=== PATIENT | female | born 1975 | race Caucasian/White ===

== ENCOUNTER 2017-02-04 12:49 | Emergency (ER) | payer MEDICAID ==
[2017-02-04 12:58] VITALS: RESP 16; O2SAT 98
[2017-02-04] MEDS ORDERED: ONDANSETRON DISINTEGRATING 4 MG TAB ONE (13:04)
[2017-02-04] MEDS ORDERED: NS 1,000 ML IV ONE ×2 (13:55→14:45)
[2017-02-04] MEDS ORDERED: METOCLOPRAMIDE 10 MG/2 ML VIAL IVP ONE (13:55)
[2017-02-04] MEDS ORDERED: DEXAMETHASONE 10 MG/ML VIAL IVP ONE (13:55)
[2017-02-04] MEDS ORDERED: KETOROLAC 30 MG/1 ML SDV IVP ONE (13:55)
[2017-02-04 14:55] LABS: % IMMATURE GRANULYOCYTES 0.4 % (0.0-1.1); ABSOLUTE IMMATURE GRANULOCYTES 0.03 10^3/uL (0.00-0.10); ADD DIFF? NO; ADD MORPH? NO; ADD SCAN? NO; ATYPICAL LYMPHOCYTE FLAG 0 (0-99); FRAGMENT RBC FLAG 0 (0-99); HEMATOCRIT 38.6 % (38.0-47.0); LEFT SHIFT FLG 0 (0-99); LIPEMIA HEMOLYSIS FLAG 90 (0-99); MEAN CELL HEMOGLOBIN CONCENTR. 36.3 g/dL (32.4-36.7); MEAN PLATELET VOLUME 9.4 fL (8.7-11.7); PLATELET CLUMPS FLAG 0 (0-99); PLATELET COUNT 329 10^3/uL (150-400); RED BLOOD CELL COUNT 4.24 10^6/uL (4.18-5.33); RED CELL DISTRIBUTION WIDTH 12.2 % (11.5-15.2)
[2017-02-04 15:02] LABS: ALANINE AMINOTRANSFERASE 26 IU/L (9-52); ALKALINE PHOSPHATASE 76 IU/L (38-126); ANION GAP 14 mEq/L (8-16); ASPARTATE AMINOTRANSFERASE 23 IU/L (14-46); BILIRUBIN,TOTAL 0.6 mg/dL (0.1-1.4); BILIRUBIN-CONJUGATED 0.4 mg/dL (0.0-0.5); BILIRUBIN-UNCONJUGATED 0.2 mg/dL (0.0-1.1); CALCIUM 9.5 mg/dL (8.5-10.4); CARBON DIOXIDE 19 mEq/l (22-31); CHLORIDE 104 mEq/L (97-110); CREATININE 0.9 mg/dL (0.6-1.0); GLOMERULAR FILTRATION RATE > 60; GLUCOSE 115 mg/dL (70-100); POTASSIUM 3.6 mEq/L (3.5-5.2); SODIUM 137 mEq/L (134-144); TOTAL PROTEIN 6.8 g/dL (6.3-8.2)
--- NOTE | 2017-02-04 15:35 | UCPHY ---
H & P Patient Type: Established Chief Complaint Nursing Narrative: MIGRAINE, VOMITING, TOOK 3000MG OF VALTREX IN 8 HOURS CONCERNED IT MAY BE TOO MUCH Time Seen by Provider: 02/04/17 13:54 HPI/ROS: CHIEF COMPLAINT: Migraine HISTORY OF PRESENT ILLNESS: This is a 41-year-old female presents reporting that she thinks she has a migraine headache. Patient describes history of migraines which typically present and focal pain behind her left eye, light sensitivity, nausea, vomiting, and often a feeling of being off balance. Yesterday the patient touch was getting a cold sore and took 1000 mg of Valtrex as she has been directed to do by her physician. She began to develop a headache. In the middle night she took an additional 1000 mg of Valtrex and again took 1000 mg of Valtrex at 9:30 a.m. in the morning. Patient reports a diffuse headache as well as nausea, vomiting, and feeling off balance. She does not have a focal headache. She mostly complains of feeling poorly all She denies any recent fevers or chills, chest pain, shortness breath, palpitations, diarrhea, urinary complaints, or lightheadedness. She denies vertiginous symptoms but states that when she gets migraine she often feels off balance and according to her sister she was off balance and nearly ataxic on arrival to the emergency department. Patient states she has been seen 1 time in the emergency department previously for similar severe symptoms such as today's. No head trauma recently. No fever. REVIEW OF SYSTEMS: Aside from elements discussed in the HPI, a comprehensive 10-point review of systems was reviewed and is negative. PAST MEDICAL HISTORY: Migraines, seizure disorder. SOCIAL HISTORY: Here with her sister. Nonsmoker. VITAL SIGNS Reviewed by me. GENERAL: Well-developed, well-nourished, resting in a dark room. HEENT: Atraumatic. Eyes: PERRL, EOMI, no nystagmus. No icterus. No injection. Mouth: moist mucous membranes. No erythema or lesions. Neck: No meningitis. Nontender to palpation. No adenopathy. Negative Kernig's. Negative Brudzinski's. No meningismus. LUNGS: Clear to auscultation bilaterally, no wheezes, rhonchi or rales. CARDIAC: Regular rate and rhythm, no rubs, murmurs or gallops. ABDOMEN: Soft, nontender, nondistended, bowel sounds normal. BACK: No CVA tenderness. EXTREMITIES: No trauma. No edema. Range of motion is normal throughout. NEURO: Alert and oriented, cranial nerves II through XII are intact. Motor strength 5 over 5 in all major muscle groups. Sensation intact to light touch. [id number] is normal. SKIN: Warm and dry, no rash. PSYCHIATRIC: Normal mentation, no agitation. - Personal History LMP (Females 10-55): 1-7 Days Ago Current Tetanus Diphtheria and Acellular Pertussis (TDAP): Yes Tetanus Vaccine Date: < 10 YEARS - Medical/Surgical History Hx Asthma: Yes Hx Chronic Respiratory Disease: No Hx Diabetes: No Hx Cardiac Disease: No Hx Renal Disease: No Hx Cirrhosis: No Hx Alcoholism: No Hx HIV/AIDS: No Hx Splenectomy or Spleen Trauma: No Other PMH: seizures, migraines, hemochromatosis, adhd, appy - Family History Significant Family History: No pertinent family hx (no history of thromboemboli) - Social History Smoking Status: Never smoked Constitutional: Initial Vital Signs Heart Rate 62 02/04/17 12:52 Respiratory Rate 16 02/04/17 12:52 Blood Pressure 124/71 H 02/04/17 12:52 O2 Sat (%) 98 02/04/17 12:52 O2 Delivery Mode Room Air Allergies/Adverse Reactions: No Known Allergies Allergy (Unverified 02/04/17 12:58) Home Medications: Medication Instructions Recorded ALBUTEROL SULFATE 12/20/10 LAMICTAL ODT 12/20/10 Valtrex 12/20/10 Escitalopram Oxalate 05/05/16 Levothyroxine 05/05/16 Zonegran 05/05/16 Medical Decision Making ED Course/Re-evaluation: IV was established. Patient received Reglan, Benadryl, Decadron, Toradol for her headache. CBC and chemistries are normal with the exception of a CO2 of 19. Results: CT scan of the head was obtained. I viewed the images independently on the PACS system. I discussed the results of the study with the radiologist. Impression: No acute findings, no trauma. No mass. Please see the full radiology report. Patient reexamined on multiple occasions. Feeling somewhat improved with meds including dilaudid. Wants to go home. Still off balance but reports this is better than it has been with her migraines in the past. Nursing staff ambulated patient with minimal assistance. She and her sister are comfortable with being discharged. They feel it is typical of her migraine headaches as well as possible effects of additional valtrex. Differential Diagnosis: After history was obtained, and the physical exam performed, a differential for this patients symptom complex was considered including, but not limited to, subarachnoid hemorrhage, migraine headache, tension headache, electrolyte abnormalities, stroke, central venous clot, and infectious causes such as meningitis, sinusitis, encephalitis, and viral illness. - Data Points Laboratory Results: Laboratory Results 02/04/17 13:10 02/04/17 13:10 Medications Given: Discontinued Medications Dexamethasone (Decadron Injection) 10 mg IVP EDNOW ONE Stop: 02/04/17 13:56 Last Admin: 02/04/17 14:18 Dose: 10 mg Diphenhydramine HCl (Benadryl Injection) 25 mg IVP EDNOW ONE Stop: 02/04/17 13:56 Last Admin: 02/04/17 14:18 Dose: 25 mg Sodium Chloride (Ns) 1,000 mls @ 0 mls/hr IV ONCE ONE PRN Reason: Wide Open Stop: 02/04/17 13:56 Last Admin: 02/04/17 14:19 Dose: 1,000 mls Sodium Chloride (Ns) 1,000 mls @ 0 mls/hr IV ONCE ONE PRN Reason: Wide Open Stop: 02/04/17 14:46 Last Admin: 02/04/17 14:58 Dose: 1,000 mls Ketorolac Tromethamine (Toradol) 30 mg IVP EDNOW ONE Stop: 02/04/17 13:56 Last Admin: 02/04/17 14:18 Dose: 30 mg Metoclopramide HCl (Reglan Injection) 10 mg IVP EDNOW ONE Stop: 02/04/17 13:56 Last Admin: 02/04/17 14:19 Dose: 10 mg Departure - Departure Disposition: Home, Routine, Self-Care Clinical Impression: Migraine Qualifiers: Migraine type: unspecified Status migrainosus presence: without status migrainosus Intractability: not intractable Qualified Code(s): G43.909 - Migraine, unspecified, not intractable, without status migrainosus Headache Qualifiers: Headache type: unspecified Headache chronicity pattern: episodic headache Intractability: not intractable Qualified Code(s): R51 - Headache Condition: Good Instructions: Migraine Headache (ED) Additional Instructions: Please follow up with your neurologist regarding today's symptoms. Please follow up with your primary care physician as well. I encourage you to get plenty of rest, drink plenty of fluid, continue to use Phenergan as needed for nausea. Return to Urgent Care follow up with her primary care physician or seek care urgently if you develops severe worsening headache pain, worsening off balance sensation, or other concerns. Referrals: Sybil Mosley DO [Primary Care Provider] - As per Instructions - PQRS PQRS Measurement: Not applicable
[2017-02-04 15:55] VITALS: BP 114/60; PULSE 72; TEMP 97.5
== END 2017-02-04 16:05 | disposition home or self-care (01) ==
LOC: CED 12:49
DX: G43.909 Migraine, unspecified, not intractable, without status migrainosus (principal)
CPT/HCPCS: 70450-PO; 80048-PO; 80076-PO; 83690-PO; 84703-PO; 85025-PO; 87400-PO; 96361-PO; 96374-PO; 96375-PO; G0463-PO; J1200; J1885; J2765

== ENCOUNTER 2017-09-06 23:32 | Emergency (ER) | payer MEDICAID ==
[2017-09-06 23:48] VITALS: RESP 16
--- NOTE | 2017-09-07 00:02 | EDPHY ---
H & P Stated Complaint: L Calf pain and edema. Time Seen by Provider: 09/06/17 23:50 HPI/ROS: CHIEF COMPLAINT: left calf discomfort and medial leg discomfort with swelling HISTORY OF PRESENT ILLNESS: 42-year-old female who some 10 days ago was out on around, this is something quite common for her as she actively runs. The course of the run there is no particular 1 incident where she injured the leg or with a particular stride but in general the leg started to bother her. She localizes the area of discomfort at the beginning over the medial aspect just above the tibial malleolus. Over the next 10 days the discomfort has intensified, only stay brain mild at 3/10. However the area of discomfort has increased and expanded up to the midportion of the calf. Further she feels that there is some tension in the tissue as it is sore to the touch. Finally, she noted some pitting edema to the ankle area in the tissue just above the ankle prompted her to become concerned for something else as an alternative diagnosis, such as DVT. P no particular incident recalled. Q achiness R starting at the medial aspect of the lower leg just above the tibial malleolus ascending to the midportion of the gastroc S 2-3 T progressive over last 10 days Furthermore, of note is that she has had prior issues with medial gastrocs sensitivity with a running but has never been feeling like this nor has there been any associated swelling in the past. 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 Respiratory-there is no pleuritic chest pain, chest pain, cough, or shortness of breath CV: No chest pain or SOB. Integument - there is a donna to the area of the distal aspect of the distal 5th of the anterior tibial surface of a abrasion. This is not like a scratch. There is no surrounding erythema or edema or sensitivity. She shaves daily, though does not recall an injury per se. Ext - no edema to the other leg Neurological - no numbness, tingling, or paresthesias. Source: Patient Exam Limitations: No limitations - Personal History LMP (Females 10-55): 15-21 Days Ago Current Tetanus/Diphtheria Vaccine: Unsure Current Tetanus Diphtheria and Acellular Pertussis (TDAP): Unsure Tetanus Vaccine Date: < 10 YEARS - Medical/Surgical History Hx Asthma: Yes Hx Chronic Respiratory Disease: No Hx Diabetes: No Hx Cardiac Disease: No Hx Renal Disease: No Hx Cirrhosis: No Hx Alcoholism: No Hx HIV/AIDS: No Hx Splenectomy or Spleen Trauma: No Other PMH: seizures, migraines, hemochromatosis, ADHD, appy, hypothyroid, R knee arthroscope, Insomnia. No known hypercoagulable syndrome - Family History Significant Family History: No pertinent family hx (Mother did have a blood clot of some sort treated with stockings as well as heparin 4 years ago. At the same token there is no history of a family hypercoagulable syndrome) - Social History Smoking Status: Never smoked Alcohol Use: None Drug Use: None - Physical Exam Exam: General Appearance: Alert, no distress. Afebrile. HEENT: no air hunger, good color, no cyanosis, no pallor. Resp: no labored breathing CV: peripheral pulses intact and a little faint on the left vs right, but not any more than I expect with the mild swelling. Extremities: There is a mild degree of soft tissue swelling to the midportion of the left leg when compared to the right. There is also increased turgor within the leg, but I do not feel any palpable cords localized to the deep system. There is a small, 8 x 6 mm partial-thickness abrasion overlying the midportion of the distal 5th of the left leg with no surrounding erythema or edema. She cannot give an explanation for this injury. She does not think it to have been from shaving. There is 1+ pitting edema in the lower 5th of the leg and notable edema the surrounding the area of the Achilles tendon. Her Osorio test is negative. And there is no particular tenderness along the course of the Achilles per se at the insertion or along the length. There is tenderness along the muscle belly of the gastroc particularly medially as she is noted. No inguinal adenopathy. No red streaks. Homans is negative. Cap Refill intact. Musculoskeletal: There is no swelling to the knee joint. Clinton sign is negative. Full range of motion. Neurological: NV intact. Skin: See above WRT small abrasion. Warm and dry, no rashes. no lymphangitis. Psychiatric: Normal affect. Appropriately worried, not stressing out. Constitutional: Initial Vital Signs Temperature (C) 36.7 C 09/06/17 23:46 Heart Rate 75 09/06/17 23:46 Respiratory Rate 16 09/06/17 23:46 Blood Pressure 120/68 09/06/17 23:46 O2 Sat (%) 98 09/06/17 23:46 O2 Delivery Mode Room Air Allergies/Adverse Reactions: No Known Allergies Allergy (Verified 09/06/17 23:34) Home Medications: Medication Instructions Recorded ALBUTEROL SULFATE 12/20/10 LAMICTAL ODT 12/20/10 Valtrex 12/20/10 Escitalopram Oxalate 05/05/16 Levothyroxine 05/05/16 Zonegran 05/05/16 Ambien 09/06/17 Imitrex 09/06/17 Lorazepam 09/06/17 Phenergan 12.5mg tab 09/06/17 Trazodone HCl 09/06/17 Medical Decision Making ED Course/Re-evaluation: Her Wells score is as follows: : No Immobilize - casting/paresis: No Bedridden / Surgery in 4 weeks no Locally tender to deep system no Calf >3cm no Pitting edema of involved leg yes Swollen veins, non varicose, superficial no Active Cancer < 6 mo. No Other Dx more llikely (-2) = bakers, cellulitis, muscle damage - muscle strain likely, -2 Her score is-1, which is low probability thus I will perform a D-dimer. Ultimately D-dimer was weakly positive 570. Thus a duplex scan of the left lower leg was ordered. I reviewed the study, which is a whole leg study, with the on-call radiologist who read the film for me. He notes that there is no signs of DVT. However there is a medial fluid collection near the knee extending down toward the ankle. It is not completely compatible with a Valle cyst though of a consideration - however the patient's symptoms seemed to start from a medial, extreme lower leg process. I had a chance to discuss with patient these findings. We also discussed elevation leg of the neck is for 5 days to mitigate the swelling, no shaving as she has abrasion of the leg, and follow up with her PCP/orthopedist of choice. The abrasion does not appear to be infected. I think this is a low chance that this is cellulitic process and that the antibiotic would be much more problematic than helpful. Thereby would only institute antibiotics if symptoms become more definitive. Differential Diagnosis: The differential diagnosis includes but is not limited to: Fracture, Sprain, Strain, Dislocation, Nerve injury, DVT, Contusion Departure - Departure Disposition: Home, Routine, Self-Care Clinical Impression: Leg swelling Muscle strain of left lower extremity Qualifiers: Encounter type: initial encounter Qualified Code(s): S86.912A - Strain of unspecified muscle(s) and tendon(s) at lower leg level, left leg, initial encounter Abrasion hip/leg Qualifiers: Encounter type: initial encounter Laterality: left Qualified Code(s): S80.812A - Abrasion, left lower leg, initial encounter Condition: Good Instructions: Muscle Strain (ED) Additional Instructions: Apply Band-Aid to the abrasion 3 times daily after mild soap cleanse Elevate the leg as much as possible over the next 4-5 days Return or if you have swelling into the thigh, worsening symptoms, or any chest symptoms such as cough shortness of breath or pain with breathing No shaving until this leg condition settles down Referrals: Patient,NotPresent [Primary Care Provider] - As per Instructions Stand Alone Forms: Work Excuse
[2017-09-07 02:19] VITALS: BP 122/86; PULSE 70; TEMP 97.7; O2SAT 97
== END 2017-09-07 02:18 | disposition home or self-care (01) ==
LOC: CED 23:32
DX: S86.912A Strain of unspecified muscle(s) and tendon(s) at lower leg level, left leg, initial encounter (principal); S80.812A Abrasion, left lower leg, initial encounter; J45.909 Unspecified asthma, uncomplicated; X58.XXXA Exposure to other specified factors, initial encounter
CPT/HCPCS: 85378-PO; 93971-PO